=== PATIENT | male | born 1985 | race Caucasian/White ===

== ENCOUNTER 2021-02-20 09:57 | Emergency (ER) | payer OTHER ==
[2021-02-20 10:19] VITALS: BP 136/74
[2021-02-20] MEDS ORDERED: ERYTHROMYCIN OPHTH OINT 1 GM TUBE LEFTEYE STA (12:07)
--- NOTE | 2021-02-20 12:09 | ED Physician Documentation ---
History of Present Illness - Stated complaint Stated Complaint: L EYE IRRITATION - Chief complaint Chief Complaint: Heent - Additonal information Additional information: 36-year-old male presents emergency department for evaluation of 4 days left eye irritation. He reports hiking at [facility] over the weekend. He was very windy. He was wearing goggles but is concerned that he may have some volcanic mayte in his eye. No loss of vision. No eye pain. He does endorse minor congestion and runny nose recently as well. Does not wear contact lenses. Review of Systems Constitutional: denies: Fever, Chills Eyes: reports: Discharge, Irritation. denies: Loss of vision Ears: reports: Reviewed and negative Nose: reports: Reviewed and negative Cardiac: reports: Reviewed and negative Respiratory: reports: Reviewed and negative GI: reports: Reviewed and negative : reports: Reviewed and negative PD PAST MEDICAL HISTORY - Past Medical History Past Medical History: No - Past Surgical History Past Surgical History: No - Allergies Allergies/Adverse Reactions: Allergies Allergy/AdvReac Type Severity Reaction Status Date / Time No Known Drug Allergies Allergy Verified 02/20/21 10:19 - Social History Does the pt smoke?: No Smoking Status: Never smoker Does the pt drink ETOH?: No Does the pt have substance abuse?: No - Immunizations Immunizations are current?: Yes PD ED PE EXPANDED - General General: Alert, No acute distress - HEENT HEENT: PERRL, EOMI, Ears normal - Eyes Eyes: Normal eyelids, Corneal abrasion (Superficial corneal abrasion noted at approximately 6:00 lower conjunctiva left eye) Results - Vitals Vitals: Vital Signs - 24 hr 02/20/21 10:16 Temperature 36.5 C Heart Rate 68 Respiratory 15 Rate Blood Pressure 136/74 H O2 Saturation 99 Oxygen O2 Source Room air PD MEDICAL DECISION MAKING - ED course Complexity details: re-evaluated patient, d/w patient ED course: 36-year-old male presents emergency department for evaluation of left eye irritation for about 4 days after hiking at [facility] where it was very windy and as she was blowing. He was wearing goggles but is concerned he may have a superficial abrasion. On fluorescein exam there is a superficial linear abrasion at approximately 6:00 on the lower conjunctiva. Erythromycin ointment was given to the patient. Routine care and follow-up thereof was discussed. Departure - Departure Disposition: 01 Home, Self Care Clinical Impression: Corneal abrasion, left Qualifiers: Encounter type: initial encounter Qualified Code(s): S05.02XA - Injury of conjunctiva and corneal abrasion without foreign body, left eye, initial encounter Condition: Stable Record reviewed to determine appropriate education?: Yes Instructions: ED Eye Injury Corneal Abrasion Comments: Quinton it was pleasure to care for you today. I hope that your left eye is feeling better soon. You do have a corneal abrasion on the lower eye at approximately 6:00. Please apply the erythromycin ointment 2-3 times a day for the next 4 to 5 days. I would expect this to fully resolve over the next week. I do recommend close follow-up with an electronic communications technician or an pediatric physician assistant to ensure full resolution. Return to the ER if you are having increased symptoms, worsening pain or any loss of vision.
== END 2021-02-20 12:54 | disposition home or self-care (01) ==
LOC: ED 09:57
DX: S05.02XA Injury of conjunctiva and corneal abrasion without foreign body, left eye, initial encounter (principal); X58.XXXA Exposure to other specified factors, initial encounter; Y93.31 Activity, mountain climbing, rock climbing and wall climbing
CPT/HCPCS: 99282; J3490